=== PATIENT | female | born 1935 | race Caucasian/White ===

== ENCOUNTER 2023-03-25 11:08 | Emergency (ER) | payer MEDICARE, BC, SELFPAY ==
[2023-03-25 11:14] VITALS: BP 137/76; PULSE 89; RESP 18; TEMP 36.4; O2SAT 97; BMI 34.0
--- NOTE | 2023-03-25 11:18 | CRLHL7_ITS ---
For Patients: As a result of the Century Cures Act, medical imaging exams and procedure reports are released immediately into your electronic medical record. You may view this report before your referring provider. If you have questions, please contact your health care provider. Indication: Eval for foreign body. Technique: Left tibia and fibula, 2 views. Comparison: None. Findings: Bones: Alignment is normal. No fractures or bone lesions. Joint spaces: Mild degenerative changes noted at the knee and visualized portions of the ankle joint.. Soft tissues: No radiopaque foreign body identified.. Soft tissue swelling in the calf. Varicose veins along the medial margin. Centrally, vascular calcifications are noted. Dictated by Natali Escobedo MD @ 03/25/2023 12:34:18 PM (Electronically Signed)
--- NOTE | 2023-03-25 11:19 | ED_ITS ---
HPI - General Adult General Chief complaint: Extremity Pain/Injury, Lower Stated complaint: L leg infection Time Seen by Provider: 03/25/23 11:10 History of Present Illness HPI narrative: Patient is an 87 year white female that had a left anterior lozada quarter-size infection with now some cellulitic change around it for the last few weeks. She has been on Keflex as notice much improvement. She denies foreign body, she is nondiabetic. She was on cephalexin from urgent care appropriately and did not seem to get a lot of improvement. She has got a violaceous area within area of cellulitic change the violaceous area that is slightly raised is about a quarter-size. Related Data Home Medications Medication Instructions Recorded Confirmed hydrochlorothiazide 25 mg tablet 25 mg PO DAILY 03/19/23 03/19/23 lisinopril 30 mg tablet 30 mg PO DAILY 03/19/23 03/19/23 pravastatin 40 mg tablet 40 mg PO DAILY 03/19/23 03/19/23 Previous Rx's Medication Instructions Recorded cephalexin 500 mg capsule 500 mg PO TID #21 caps 03/19/23 amoxicillin 500 mg-potassium 1 tab PO BID #14 tabs 03/25/23 clavulanate 125 mg tablet (Augmentin) Allergies Allergy/AdvReac Type Severity Reaction Status Date / Time sulfamethoxazole Allergy Severe Rash/Hives Verified 03/19/23 12:12 trimethoprim Allergy Severe Rash/Hives Verified 03/19/23 12:12 azithromycin Allergy Intermediate Stomach Verified 03/19/23 12:12 upset Sulfa drugs Allergy Severe Rash/hives Uncoded 03/19/23 12:12 Review of Systems Status of ROS: Reports: 6 or more systems reviewed and unremarkable except as noted in History and below PFSH PFS Social History Smoking Status: Former smoker How often do you have a drink containing alcohol: 4 or more times a week AUDIT-C Alcohol total score: 4 Non-prescribed substance use: denies use Exam Narrative: Exam Narrative: Objective: Vital signs show no fever She has got a quarter-sized area of red violaceous raised area in the left lower lateral lozada surrounded by a silver dollar or slightly larger size redness consistent with cellulitis. No ascending cellulitis. No swelling of the leg. Again she denies bites or injuries but does know she could have had a potential spider bite Const: Vital Signs, click to edit/add: Vital Signs - 24 hr 03/25/23 11:14 Temperature 97.5 F L Pulse Rate [Pulse Oximeter] 89 Respiratory Rate 18 Blood Pressure [Ri ght Upper Arm] 137/76 Pulse Oximetry 97 Oxygen Delivery Me thod Room Air Course Vital Signs Vital signs: Initial Vital Signs Temperature 97.5 F L 03/25/23 11:14 Temperature Source Temporal Artery Scan 03/25/23 11:14 Pulse Rate 89 03/25/23 11:14 Respiratory Rate 18 03/25/23 11:14 Blood Pressure 137/76 03/25/23 11:14 Blood Pressure Mean 96 03/25/23 11:14 Blood Pressure Position Sitting 03/25/23 11:14 Pulse Oximetry 97 03/25/23 11:14 Oxygen Delivery Method Room Air 03/25/23 11:14 Vital Signs Temperature 97.5 F L 03/25/23 11:14 Pulse Rate 89 03/25/23 11:14 Respiratory Rate 18 03/25/23 11:14 Blood Pressure 137/76 03/25/23 11:14 Pulse Oximetry 97 03/25/23 11:14 Oxygen Delivery Method Room Air 03/25/23 11:14 Temperature 97.5 F L 03/25/23 11:14 Pulse Rate 89 03/25/23 11:14 Respiratory Rate 18 03/25/23 11:14 Blood Pressure 137/76 03/25/23 11:14 Pulse Oximetry 97 03/25/23 11:14 Oxygen Delivery Method Room Air 03/25/23 11:14 Medications Administered Medications: Generic Name Dose Route Start Last Admin Trade Name Freq PRN Reason Stop Dose Admin Lidocaine HCl 1 ml 03/25/23 11:25 03/25/23 11:44 Lidocaine 1% 5 Ml (Pf) 5 Ml Vial IM 1 ml DIRECTED PRN Administration Pain Discontinued Medications Generic Name Dose Route Start Last Admin Trade Name Freq PRN Reason Stop Dose Admin Ceftriaxone Sodium 500 mg 03/25/23 11:25 03/25/23 11:44 Ceftriaxone 500 Mg Vial IM 03/25/23 11:26 500 mg ONCE ONE Administration Medical Decision Making MDM Narrative Medical decision making narrative: [age] year white female with a left lower leg infection. Possible spider bite, possible foreign body with infection. Will check an x-ray to make sure there is no foreign body, if this is negative then I think treating with Rocephin and Augmentin might be appropriate. Follow up in primary care in the next few days. Warm pack to the area as well. Discussed with the patient that this is a spider bite it may take several weeks for it to resolve. And that are task is to keep it from getting infected with antibiotic prevention until it heals. Addendum 11:37 a.m. patient has no foreign body noted on x-ray by my read. Rocephin IM followed by Augmentin orally, stop the Keflex. And recheck with regular doctor next Thursday as planned. Discharge Plan Discharge Clinical Impression: Cellulitis of left leg Patient Disposition: Home, Self-Care Condition: Stable Additional Instructions: Warm soak in a bathtub or shower twice a day, antibiotic the run now stop, would recommend you take Augmentin and will give you a shot of Rocephin which is a strong antibiotic. Recheck with regular doctor in 5-7 days. Sooner problems or concerns or worsening. Activity Level: Light activity Discharge Diet: Regular Prescriptions: New amoxicillin-pot clavulanate [Augmentin] 500-125 mg tablet 1 tab PO BID Qty: 14 0RF No Action hydrochlorothiazide 25 mg tablet 25 mg PO DAILY lisinopril 30 mg tablet 30 mg PO DAILY pravastatin 40 mg tablet 40 mg PO DAILY cephalexin 500 mg capsule 500 mg PO TID Qty: 21 0RF Follow Up/Referrals: Alana Ryan DO [Primary Care Provider] - Stand Alone Forms: [employer] Medical Info Instructions
[2023-03-25] MEDS: LIDOCAINE 1% 5 ml (pf) 5 ML VIAL 1 ML IM (11:44)
[2023-03-25] MEDS: cefTRIAXone 500 MG VIAL IM (11:44)
== END 2023-03-25 12:03 | disposition home or self-care (01) ==
LOC: ED 11:35
PROVIDERS: Emergency Provider Family Medicine; PCP Family Medicine
DX: L03.116 Cellulitis of left lower limb (principal)
CPT/HCPCS: 73590; 96372; 99283; 99284; J0696

== ENCOUNTER 2024-02-26 12:04 | Outpatient (CLI) | payer MEDICARE, BC, SELFPAY ==
--- NOTE | 2024-02-26 12:50 | W.ANESCHARGE ---
Anesthesia Charges Start Date/Time Anesthesia Start Date: 02/26/24 Anesthesia Start Time: 12:55 Stop Date/Time Anesthesia Stop Date: 02/26/24 Anesthesia Stop Time: 13:25 Summary Extremes of Age - Over 70 or under 1: MDA
--- NOTE | 2024-02-26 13:30 | W.ANESCHARGE ---
Anesthesia Charges Start Date/Time Anesthesia Start Date: 02/26/24 Anesthesia Start Time: 12:55 Stop Date/Time Anesthesia Stop Date: 02/26/24 Anesthesia Stop Time: 13:25 Summary Extremes of Age - Over 70 or under 1: [employer]
== END 2024-02-26 12:05 | disposition home or self-care (01) ==
LOC: OP CLINIC 12:06
PROVIDERS: PCP Family Medicine; Visit Provider Internal Medicine Gastroenterology
DX: Z12.11 Encounter for screening for malignant neoplasm of colon (principal); D12.0 Benign neoplasm of cecum; K57.30 Diverticulosis of large intestine without perforation or abscess without bleeding; Z86.0101 Personal history of adenomatous and serrated colon polyps
CPT/HCPCS: 00811; 45380; 88305; 99100; J2704